=== PATIENT | male | born 1960 | race Caucasian/White ===

== ENCOUNTER → 2016-09-10 | Outpatient (CLI) | payer BC ==
--- NOTE | 2016-09-10 15:59 | DIAGNOSTIC IMAGING REPORT ---
(TESTICULAR) SCROTUM-CONT HISTORY: 55-year-old male presents with acute left-sided scrotal pain and swelling without reported trauma. COMPARISON: None available. TECHNIQUE: Multiple real-time sonographic images of the scrotum were obtained assessing grayscale appearance, color and spectral flow. FINDINGS: The right testicle measures 4.7 x 2.3 x 3.4 cm and demonstrates normal appearing parenchyma without focal mass. Normal pericardial waveform is seen within the right testicle. The right epididymal head measures 1.2 x 1.0 x 1.5 and appears moderately heterogeneous. There is a focal area of decreased echogenicity of the epididymal head, 0.8 x 0.7 x 0.6 cm which is nonspecific without increased vascularity. The left testicle measures 4.7 x 2.3 x 3.4 cm and is normal in echogenicity without focal mass. The waveform within the left testicle appears normal. The left epididymal head measures 0.9 x 0.9 x 1.0 cm and appears unremarkable. Dilated vascular structures are seen in the left hemiscrotum compatible with varicocele. IMPRESSION: 1. Normal sonographic appearance of the bilateral testicles without evidence of torsion or mass. 2. Left-sided varicocele. 4. Somewhat nonspecific heterogeneous appearance of the right epididymis. Electronically signed by: Tejas Vences 09/10/2016 3:58 PM Dictated Date/Time: 09/10/2016 3:53 PM
== END | disposition home or self-care (01) ==
LOC: C.ULTR 14:48
PROVIDERS: ATTEND Family Medicine
DX: N50.89 Other specified disorders of the male genital organs (principal); I86.1 Scrotal varices